=== PATIENT | female | born 1975 | race Caucasian/White ===

== ENCOUNTER → 2023-09-20 | Outpatient (CLI) | payer OTHER ==
[2023-09-20 22:32] LABS: Appearance,Urine Clear (Clear); Bilirubin,Urine Negative (Negative); Blood,Urine Moderate (Negative); Color,Urine Yellow (Yellow); Ketones,Urine Negative (Negative); Nitrite,Urine Negative (Negative); Specific Gravity,Urine 1.016 (1.001-1.030); Urobilinogen,Urine 0.2 E.U./DL
[2023-09-20 22:47] LABS: Bacteria,Urine Trace
[2023-09-21 02:16] LABS: ALT 11 U/L (8-44); AST 22 U/L (13-35); Albumin 4.5 d/dL (3.8-4.9); Alkaline Phosphatase 104 U/L (41-126); BUN/Creat Ratio 16.71 Ratio (12.00-20.00); Blood Urea Nitrogen 11.7 mg/dL (9.0-27.0); Calcium 9.8 mg/dL (8.7-10.3); Carbon Dioxide 25.8 mmol/L (21.6-31.8); Chloride 98 mmol/L (96-109); Globulin 2.5 d/dL (1.6-3.3); Glucose 82 mg/dL (70-110); Potassium 4.4 mmol/L (3.5-5.5); Sodium 139 mmol/L (135-145); Total Bilirubin 0.3 mg/dL (0.3-1.2)
== END | disposition home or self-care (01) ==
LOC: LABPAT 14:13
PROVIDERS: ATTEND Urology
DX: Z01.812 Encounter for preprocedural laboratory examination (principal); N39.3 Stress incontinence (female) (male); Z79.899 Other long term (current) drug therapy; R35.0 Frequency of micturition
CPT/HCPCS: 80053; 81001; 87077; 87086; 87186

== ENCOUNTER 2023-10-09 07:56 | Day surgery (SDC) | payer OTHER ==
[2023-10-04 15:15] VITALS: BMI 39.9
--- NOTE | 2023-10-08 19:58 | P.GSHP ---
History of Present Illness H&P Date: 10/08/23 48 yo female with a several year history of nancy. She leaks with activity, laugh, cough and sneeze. She has a hypermobile urethra. We discussed treatment options. Due to the degree of her leakage with cough and her size, 248 lbs she will undergo a pvs with lynx graft. the alternatives have been discuscussed. the risks and complications including persistence of incontinence, retention of urine, injury to adjacent orgqans, infection, bleeding pain dyspareunia the mesh controversy among others have been explained understood and accepted. - Constitutional Constitutional: Denies chills, Denies fever - EENT Eyes: denies blurred vision, denies pain Ears, nose, mouth and throat: Denies headache, Denies sore throat - Cardiovascular Cardiovascular: Denies chest pain, Denies shortness of breath - Respiratory Respiratory: Denies cough, Denies 7 - Gastrointestinal Gastrointestinal: Denies abdominal pain, Denies diarrhea, Denies nausea, Denies vomiting - Genitourinary (Female) Genitourinary: Denies dysuria, Denies hematuria - Genitourinary (Male) Genitourinary: Denies dysuria, Denies hematuria - Musculoskeletal Musculoskeletal: Denies myalgias - Integumentary Integumentary: Denies pruritus, Denies rash - Neurological Neurological: Denies numbness, Denies weakness - Psychiatric Psychiatric: Denies anxiety, Denies depression - Endocrine Endocrine: Denies fatigue, Denies weight change Past Medical History Additional Past Medical History / Comment(s): BLADDER LEAKAGE. JUST FINISHED MVXPEOBOIPS-GHXOWMI-HCXM UP WITH RASH/FEVER ON SAT. WENT TO URGENT CARE AND WAS PUT ON PREDNISONE-RASH MOSTLY RESOLVED-PT HAD NEG. COVID TEST History of Any Multi-Drug Resistant Organisms: None Reported Past Surgical History: Tubal Ligation, Uterine Ablation Additional Past Surgical History / Comment(s): D & C. GANGLION CYST REMOVED FROM RT HAND Past Anesthesia/Blood Transfusion Reactions: No Reported Reaction Past Psychological History: Anxiety Smoking Status: Never smoker Past Alcohol Use History: None Reported Past Drug Use History: None Reported - Past Family History Mother Family Medical History: No Reported History Medications and Allergies Home Medications Medication Instructions Recorded Confirmed Type Cider Vinegar [Apple Cider Vinegar] 300 mg PO DAILY 10/04/23 10/04/23 History Citalopram Hydrobromide [CeleXA] 20 mg PO DAILY 10/04/23 10/04/23 History Ergocalciferol [Vitamin D2 (1250 1,250 mcg PO WE 10/04/23 10/04/23 History Mcg = 26652 Iu)] Multivit with Calcium,Iron,Min 1 each PO DAILY 10/04/23 10/04/23 History [Women's Multivitamin] predniSONE [Deltasone] 20 mg PO TID 10/07/23 10/07/23 History Allergies Allergy/AdvReac Type Severity Reaction Status Date / Time sulfamethoxazole Allergy Rash/Hives Verified 10/07/23 08:37 [From Bactrim] trimethoprim [From Bactrim] Allergy Rash/Hives Verified 10/07/23 08:37 Surgical - Exam - General well developed, well nourished, no distress - Eyes normal ocular movement, no icteric - ENT no hearing loss, no congestion - Neck no masses, trachea midline - Respiratory normal respiratory effort, clear to auscultation - Abdomen Abdomen: soft, non tender, no guarding, no rigid, no rebound - Integumentary no rash, no abnormal pigmentation - Neurologic no disoriented, no combative - Psychiatric oriented to time, oriented to person, oriented to place, speech is normal, memory intact Assessment and Plan Assessment: Impression: type 2 nancy Plan: pubovaginal sling with lynx graft, cystoscopy
[~2023-10-09 07:56] MED LIST: AMPICILLIN 1,000 MG in SODIUM CHLORIDE 0.9% 50 ML IVPB PRN; DEXAMETHASONE SOD PHOSPHATE 4 MG/ML 1 ML VIAL IV ONE; GENTAMICIN 120 MG in SODIUM CHLORIDE 0.9% 100 ML IVPB PRN; HYDROmorphone 0.5 MG/0.5 ML SYRINGE IVP PRN; LACTATED RINGERS 1,000 ML IV SCH; LIDOCAINE 1% (10MG/ML) FOR IV START INTRADERMA PRN; ONDANSETRON 4 MG/2 ML VIAL IVP ONE; droPERidol 5 MG/2 ML VIAL IVP ONE
[2023-10-09 08:46] LABS: Glucose,Whole Blood 130 mg/dL (70-110)
[2023-10-09] MEDS ORDERED: HYDROCORTISONE SUCCINATE 100 MG/2 ML VIAL IVP ONE (08:50)
[2023-10-09] MEDS ORDERED: PROPOFOL 10 MG/ML 20 ML VIAL IV ONE (09:21)
[2023-10-09] MEDS ORDERED: MIDAZOLAM 2 MG/2 ML VIAL ONE (09:21)
[2023-10-09] MEDS ORDERED: ROCURONIUM 10 MG/ML (5 ML VIAL) IV ONE (09:21)
[2023-10-09] MEDS ORDERED: LIDOCAINE 1% INJ 10MG/ML (20 ML MDV) ONE (09:21)
[2023-10-09] MEDS ORDERED: GLYCOPYRROLATE 0.2 MG/ML 2 ML VIAL ONE (09:21)
[2023-10-09] MEDS ORDERED: fentaNYL (PF) 50 MCG/ML 2 ML AMP ONE (09:21)
[2023-10-09] MEDS ORDERED: KETOROLAC 30 MG/ML 1 ML VIAL ONE (09:21)
[2023-10-09] MEDS ORDERED: NEOSTIGMINE 1 MG/ML 10 ML VIAL ONE (09:21)
[2023-10-09] MEDS ORDERED: SUCCINYLCHOLINE CHLORIDE 200 MG/10 ML VIAL IV ONE (09:21)
[2023-10-09] MEDS ORDERED: VASOPRESSIN 20 UNIT in SODIUM CHLORIDE 0.9% 60 ML IV ONE (09:44)
[2023-10-09] MEDS ORDERED: NEOMYCIN-BACITRACIN-POLY OINT 1 APPLIC/EACH PACKET TOPICAL ONE (09:51)
[2023-10-09] MEDS ORDERED: ONDANSETRON 4 MG/2 ML VIAL IVP PRN (10:11)
--- NOTE | 2023-10-09 10:17 | P.OP ---
Date of Procedure: 10/09/23 Preoperative Diagnosis: Stress urinary incontinence Postoperative Diagnosis: Same Procedure(s) Performed: Cystoscopy with pubovaginal sling (Lynx) Anesthesia: DAPHNIE Surgeon: Rad Scott Estimated Blood Loss (ml): 25 Pathology: none sent Condition: stable Disposition: PACU Indications for Procedure: The patient is 48. She has fairly classic stress urinary incontinence with hypermobile urethra. She comes for a pubovaginal sling for her stress incontinence. This complications alternatives have been discussed as has the mesh controversy Description of Procedure: Patient is brought to the operating suite. She is given a general anesthetic. She's placed in lithotomy position with a sterile prep and drape. The labia are sewn laterally with 2-0 silk. A Hurley catheters introduced sterilely. A vaginal speculum was introduced. The anterior vaginal mucosa was elevated off the submucosa with 10 mL of a mixture of 20 g of Pitressin and 200 mL of saline. A midline suburethral incision is made. I dissect lateral the bladder neck bilaterally and penetrate the endopelvic fascia bilaterally. I then make suprapubic incisions at the corners of the pubis. I passed the Lynx introducer to pubic leaving the vaginal space bilaterally. Remove the Hurley and perform cystoscopy to rule out bladder or urethral injury and there is none. I reintroduced the Hurley. I then attached the grafted introducers and pull the graft back suprapubically. It sits nicely at the bladder neck without tension. I removed the redundant sheathing. I closed the vaginal mucosa with running 2-0 Vicryl. A close the suprapubic incision 4-0 Monocryl. Vagina is packed. The patient is awakened and returned recovery room in good condition. She tolerated the procedure well and will be placed in the hospital postoperatively. Blood loss is approximately 25 mL.
[2023-10-09] MEDS: DEXTROSE 5%-0.45% NACL 1,000 ML IV SCH (12:00)
[2023-10-09] MEDS: KETOROLAC 15 MG/ML 1 ML VIAL IVP PRN (16:31)
[2023-10-09] MEDS: predniSONE 20 MG TAB PO SCH ×2 (16:32→22:07)
[2023-10-10 01:05] VITALS: PULSE 54
[2023-10-10] MEDS: KETOROLAC 15 MG/ML 1 ML VIAL IVP PRN ×2 (03:01→09:56)
[2023-10-10] MEDS: DEXTROSE 5%-0.45% NACL 1,000 ML IV SCH (03:03)
[2023-10-10] MEDS: predniSONE 20 MG TAB PO SCH (07:52)
[2023-10-10 07:58] VITALS: BP 141/79; RESP 20; TEMP 97.8
[2023-10-10] MEDS ORDERED: CITALOPRAM HYDROBROMIDE 20 MG TAB PO SCH (09:00)
== END 2023-10-10 12:15 | disposition home or self-care (01) ==
LOC: OR 07:56 → 4FBP 10:16 → OR 10-10 12:15
PROVIDERS: ATTEND Urology
DX: N39.3 Stress incontinence (female) (male) (principal); Z98.890 Other specified postprocedural states; Z79.82 Long term (current) use of aspirin; Z88.2 Allergy status to sulfonamides; Z88.1 Allergy status to other antibiotic agents; Z79.899 Other long term (current) drug therapy
CPT/HCPCS: 81025; 57288; C1771; J1100; J1720; J2405; J0290; J1885 ×2; J7512 ×2; J1170